=== PATIENT | male | born 1975 | race Caucasian/White ===

== ENCOUNTER 2017-01-16 06:44 | Emergency (ER) | payer OTHER ==
[~2017-01-16] VITALS: Ht 172.7 cm; Wt 95.3 kg
[~2017-01-16 06:44] MED LIST: METOPROLOL TART25 M1 PO
--- NOTE | 2017-01-16 07:53 | ED PSYCHIATRIC COMPLAINT ---
History of Present Illness General Chief Complaint: ETOH/Drug Related Complaint Stated Complaint: PT REQUESTING ETOH DETOX,NO HX SEIZURE Source: patient Exam Limitations: no limitations Vital Signs & Intake/Output Vital Signs & Intake/Output Vital Signs Date Time Temp Pulse Resp B/P Pulse O2 O2 Flow FiO2 Ox Delivery Rate 01/17 1944 97.5 110 18 140/80 01/16 1943 97.5 110 18 140/80 95 Room Air 01/16 1730 97.5 111 18 140/82 01/16 1708 97.5 111 18 140/82 96 01/16 1431 99.0 122 16 129/63 01/16 1431 99.0 122 16 129/63 95 Room Air 01/16 1111 97.8 114 20 124/78 01/16 1016 97.8 114 18 12478 97 Room Air 01/16 0910 98.0 120 20 130/68 01/16 0851 98.0 120 20 130/68 01/16 0723 98.7 128 20 127/81 95 Room Air Allergies Coded Allergies: sunflower seed (Intermediate, HIVES 01/16/17) Reconcile Medications Lorazepam (Ativan) 1 MG TABLET 1 TAB PO DAILY WITHDRAWL TAKE 1 TAB 3 TIMES A DAY FOR 2 DAYS THEN 1 TAB 2 TIMES A DSY FOR 2 DAYS THEN 1 TAB DAILY FOR 2 DAYS Metoprolol Tartrate 25 MG TABLET 1 TAB PO DAILY HTN (Reported) Triage Note: PT TO ED REQUESTING ETOH DETOX. STATES HE WAS "CLEAN" FOR 2 MONTHS, AND LAST SUNDAY STARTED DRINKING AGAIN. HAS BEEN DRINKING 2 PINTS OF VODKA PER DAY. STATES LAST DRINK WAS 8 HOURS AGO, "I WAS ON MY 3RD PINT OF VODKA". DENIES SEIZURES WITH ETOH DETOX. DENIES SI/HI. CALM/COOPERATIVE. STATES HE FEELS HIS HEART BEATING FAST WHICH SCARED HIM. DENIES DRUG USE. Triage Nurses Notes Reviewed? yes Onset: Abrupt Duration: hour(s): Timing: recent history HPI: 01/16/17 8:23 AM This is a 41-year-old male who presents to the emergency department complaining of chest pain. He says that he has a history of alcohol dependency. He says that he had been drinking for a long time and then had a two-month period of sobriety. He started drinking again on Sunday because he had severe insomnia. Now he says he was up all night at approximately 5 AM he had an episode of chest pain. The onset of the symptoms were abrupt, the duration was just this morning, the severity is significant; as his symptoms required him to come to the emergency department for care. Currently in ED he denies chest pain. He says he has a past medical history of insomnia and alcohol dependency. No history of seizures. Past History Travel History Traveled to [place] past 21 day No Medical History Any Pertinent Medical History? see below for history Cardiovascular: hypertension Psychiatric: alcohol dependence, ALCOHOLISM History of MRSA: No History of VRE: No History of CDIFF: No Surgical History Surgical History: non-contributory Psychosocial History Who do you live with Spouse Services at Home None What is your primary language [place]alander Tobacco Use: Never used ETOH Use: alcoholic Illicit Drug Use: denies illicit drug use Family History Family History, If Any: FATHER (Hypertension and mild diabetes). SISTER (Depression). Uncles (Alcoholism). Grandfather (Heart disease). Hx Contributory? No Review of Systems Review of Systems Constitutional: Denies: fever. EENTM: Denies: visual changes. Respiratory: Denies: short of breath. Cardiovascular: Reports: chest pain. GI: Reports: abdominal pain (LLQ). Genitourinary: Reports: no symptoms. Musculoskeletal: Reports: no symptoms. Skin: Reports: no symptoms. Neurological/Psychological: Reports: no symptoms. Hematologic/Endocrine: Reports: no symptoms. Immunologic/Allergic: Reports: no symptoms. Physical Exam Physical Exam General Appearance: no apparent distress, alert, awake, anxious Head: atraumatic, normal appearance Eyes: Bilateral: normal appearance, PERRL, EOMI. Ears, Nose, Throat: normal pharynx, normal ENT inspection Neck: normal inspection, supple, full range of motion Respiratory: normal breath sounds, chest non-tender, no respiratory distress Cardiovascular: regular rate/rhythm Gastrointestinal: soft, non-tender Extremities: normal range of motion Neurological/Psychiatric: no motor/sensory deficits, awake, alert, anxious Appearance/Memory/Insight: appropriate appearance Behavoir/Eye Contact/Speech: cooperative Thoughts/Hallucinations: no apparent hallucination Skin: intact, normal color, warm/dry SAD PERSONS Done? yes, patient not suicidal Progress Differential Diagnosis: drug intoxication, drug withdrawal Plan of Care: Orders Procedure Date/time Status Heart Healthy Diet 01/16 D Active Add-on Test (ER Only) 01/16 1320 Active URINE DRUG SCREEN FOR ER ONLY 01/16 1320 Complete TROPONIN LEVEL 01/16 1157 Complete EKG 01/16 1157 Active Vital Signs 01/16 1013 Active ETHANOL 01/16 0854 Complete CIWA 01/16 0838 Active TROPONIN LEVEL 01/16 0817 Complete COMPREHENSIVE METABOLIC PANEL 01/16 0817 Complete CBC WITHOUT DIFFERENTIAL 01/16 0817 Complete EKG 01/16 0817 Active Laboratory Tests 01/16/17 1544: Urine Opiates Screen < 100.00, Methadone Screen 67, Barbiturate Screen < 60, Ur Phencyclidine Scrn < 6.00, Amphetamines Screen < 100, U Benzodiazepines Scrn < 85, Urine Cocaine Screen < 50, Urine Cannabis Screen < 5.00 01/16/17 1311: Troponin I < 0.01 01/16/17 0854: Anion Gap 15, Estimated GFR > 60, BUN/Creatinine Ratio 16.7, Glucose 113 H, Calcium 10.6 H, Total Bilirubin 0.4, AST 61 H, ALT 111 H, Alkaline Phosphatase 55, Troponin I < 0.01, Total Protein 7.8, Albumin 5.2 H, Globulin 2.6, Albumin/Globulin Ratio 2.0, CBC w Diff NO MAN DIFF REQ, RBC 5.04, MCV 92.1, MCH 31.7 H, RDW 14.1, MPV 8.3, Gran % 51.9, Lymphocytes % 38.3, Monocytes % 8.0 , Eosinophils % 1.5, Basophils % 0.3, Absolute Granulocytes 2.9, Absolute Lymphocytes 2.1, Absolute Monocytes 0.4, Absolute Eosinophils 0.1, Absolute Basophils 0, PUBS MCHC 34.5, Serum Alcohol 200.0 Initial ED EKG: SINUS TACHYCARDIA Prior EKG: unchanged Repeat EKG: unchanged Departure Departure Disposition: STILL A PATIENT Condition: Stable Clinical Impression Primary Impression: Chest pain Secondary Impressions: Alcohol dependence with withdrawal Referrals: BREONNA ALLEN MD (PCP/Family) Departure Forms: Customer Survey General Discharge Information Prescriptions: Current Visit Scripts Lorazepam (Ativan) 1 TAB PO DAILY #14 TAB TAKE 1 TAB 3 TIMES A DAY FOR 2 DAYS THEN 1 TAB 2 TIMES A DSY FOR 2 DAYS THEN 1 TAB DAILY FOR 2 DAYS Comments 01/16/17 Prior to discharge, the patient is awake alert oriented 3, no complaints; troponins are negative, second EKG reveals just minimal sinus tachycardia. CIWA scores are less than 15, no history of seizures. He will be discharged on Ativan taper. He will follow-up with his primary care doctor. He consented to have someone from [employer] contact him about outpatient drug and alcohol rehabilitation. He was provided an Ativan taper. Chest x-ray was negative
--- NOTE | 2017-01-16 09:00 | RADIOLOGY REPORT ---
EXAMINATION: XR CHEST CLINICAL INFORMATION: Chest pain. COMPARISON: None TECHNIQUE: 2 views of the chest were obtained. FINDINGS: No significant abnormality is noted involving the heart, lungs, mediastinum. Surgical clips noted in right axilla. No gross abnormality seen in the bony thorax. IMPRESSION: Unremarkable examination.
[2017-01-16 09:06] LABS: ABSOLUTE BASOPHIL COUNT 0 /CUMM (0.0-0.2); ABSOLUTE EOSINOPHIL COUNT 0.1 /CUMM (0.0-0.7); ABSOLUTE GRANULOCYTE CT 2.9 /CUMM (1.4-6.5); ABSOLUTE LYMPH COUNT 2.1 /CUMM (1.2-3.4); ABSOLUTE MONOCYTE COUNT 0.4 /CUMM (0.10-0.60); BASOPHIL % 0.3 % (0.0-2.0); EOSINOPHIL % 1.5 % (0-5); GRANULOCYTE % 51.9 % (42.2-75.2); HEMATOCRIT 46.4 % (42-52); MEAN CORPUSCULAR HGB 31.7 PG (27.0-31.0); MEAN CORPUSCULAR HGB CONC 34.5 G/DL (33.0-37.0); MEAN CORPUSCULAR VOLUME 92.1 FL (80.0-94.0); MEAN PLATELET VOLUME 8.3 FL (7.4-10.4); PLATELET COUNT 233 /CUMM (130-400); RBC DISTRIBUTION WIDTH 14.1 % (11.5-14.5); RED BLOOD CELL CT 5.04 /CUMM (4.70-6.10); WHITE BLOOD CELL COUNT 5.6 /CUMM (4.8-10.8)
[2017-01-16] MEDS ORDERED: ATIVAN1 M1 PO (19:26)
[2017-01-16 19:44] VITALS: BP 140/80
== END 2017-01-16 19:45 ==
LOC: ERH 06:44
PROVIDERS: Emergency Medicine
DX: R07.9 Chest pain, unspecified (principal); F10.239 Alcohol dependence with withdrawal, unspecified; I10 Essential (primary) hypertension
CPT/HCPCS: 80307; 93005; 93010; G0480